=== PATIENT | female | born 1985 | race Caucasian/White ===

== ENCOUNTER 2018-09-08 14:44 | Emergency (ER) | payer MEDICAID, OTHER ==
[~2018-09-08] VITALS: Ht 182.9 cm; Wt 72.2 kg
[2018-09-08 14:48] VITALS: BP 125/85
[2018-09-08] MEDS ORDERED: LIDOCAINE 1%, 10ML INFIL ONE (15:00)
[2018-09-08] MEDS ORDERED: LIDOCAINE-MPF 1%, 2ML ONE (15:19)
[2018-09-08] MEDS ORDERED: BACITRACIN ZINC OINT 500U/GM, 0.9 GM ONE (16:22)
== END 2018-09-08 16:56 | disposition home or self-care (01) ==
LOC: ED 16:30
DX: L03.012 Cellulitis of left finger (principal); F17.200 Nicotine dependence, unspecified, uncomplicated
CPT/HCPCS: 10060; 99283

== ENCOUNTER 2018-09-09 19:51 | Emergency (ER) | payer SELFPAY ==
[~2018-09-09] VITALS: Ht 182.9 cm; Wt 72.4 kg
[2018-09-09 19:54] VITALS: BP 122/83
--- NOTE | 2018-09-09 20:20 | NUR ---
krupa perrin at bs for pt assessment. pt has call light within reach.
--- NOTE | 2018-09-09 21:06 | NUR ---
PT D/C WITH D/C SUMMARY AND SCRIPTS. ALL QUESTIONS ANSWERED. PT DENIES ANY OTHER NEEDS PERTAINING TO THIS VISIT. PT AMBULATED TO REGISTRATION DESK WITH STEADY GAIT FOR D/C HOME.
== END 2018-09-09 21:09 | disposition home or self-care (01) ==
LOC: ED 21:03
DX: L03.012 Cellulitis of left finger (principal)
CPT/HCPCS: 99281

== ENCOUNTER 2018-09-27 16:37 | Emergency (ER) | payer OTHER ==
[~2018-09-27] VITALS: Ht 182.9 cm; Wt 80.0 kg
--- NOTE | 2018-09-27 16:41 | NUR ---
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
[2018-09-27 16:51] VITALS: BP 106/66
[2018-09-27 17:15] LABS: BASOPHILS # (AUTO) 0.13 x10^3/uL (0-0.1); BASOPHILS % (AUTO) 2 % (0-1); EOSINOPHILS # (AUTO) 0.19 x10^3/uL (0-0.4); EOSINOPHILS % (AUTO) 3 % (1-7); LYMPHOCYTES # (AUTO) 1.73 x10^3/uL (1-3.4); LYMPHOCYTES % (AUTO) 22 % (22-44); MD NO; MEAN CORPUSCULAR HEMOGLOBIN 31.5 pg (27.0-34.8); MEAN CORPUSCULAR HGB CONC 33.7 g/dL (32.4-35.8); MEAN CORPUSCULAR VOLUME 93.5 fL (80-100); MEAN PLATELET VOLUME 8.1 fL (7.4-10.4); MONOCYTES # (AUTO) 0.71 x10^3/uL (0.2-0.8); MONOCYTES % (AUTO) 9 % (2-9); NEUTROPHILS # (AUTO) 4.98 x10^3/uL (1.8-6.8); NEUTROPHILS % (AUTO) 64 % (42-75); PLATELET COUNT 260 x10^3/uL (130-400); RED BLOOD COUNT 4.21 x10^6/uL (3.82-5.3); RED CELL DISTRIBUTION WIDTH 13.3 % (9.6-15.2)
[2018-09-27 17:24] LABS: ALBUMIN 3.5 g/dL (3.4-5.0); ANION GAP 8 mmol/L (5-15); CALCIUM 8.3 mg/dL (8.5-10.1); CHLORIDE 111 mmol/L (98-107); CREATININE 0.59 mg/dL (0.55-1.02)
--- NOTE | 2018-09-27 17:27 | NUR ---
[employer] IS AT BEDSIDE. VSS. TOLD PT UA SAMPLE IS NEEDED.
[2018-09-27] MEDS ORDERED: IBUPROFEN 200 MG TABLET PO ONE (18:30)
[2018-09-27] MEDS ORDERED: IBUPROFEN 200 MG TABLET ONE (18:41)
--- NOTE | 2018-09-27 18:49 | NUR ---
Patient/Caregiver given discharge instructions and they have confirmed that they understand the instructions. Patient ambulatory with steady gait.
--- NOTE | 2018-09-27 18:49 | NUR ---
THIS RN CALLED [employer] DISPATCH TO LET OFFICER KNOW THAT PT WAS READY FOR D/C AND WANTING TO LEAVE. DISPATCH STATED THAT THEY WOULD CALL OUT TO OFFICER DOSER
== END 2018-09-27 18:50 | disposition home or self-care (01) ==
LOC: ED 16:52
DX: S29.9XXA Unspecified injury of thorax, initial encounter (principal); F17.210 Nicotine dependence, cigarettes, uncomplicated; Y04.8XXA Assault by other bodily force, initial encounter; Y93.89 Activity, other specified; Y92.89 Other specified places as the place of occurrence of the external cause; Y99.8 Other external cause status
CPT/HCPCS: 36415; 70450; 72072; 72110; 80048; 80307; 82040; 84703; 85025; 99284

== ENCOUNTER 2018-11-12 15:57 | Emergency (ER) | payer MEDICARE, MEDICAID ==
--- NOTE | 2018-11-12 16:10 | NUR ---
PT STATING THAT SHE HAS AN APPOINTMENT AT [facility] AND WOULD LIKE TO GO TO [facility] NOW AND POSSIBLY WILL COME BACK LATER OR GET SEEN AT [facility]
== END 2018-11-12 16:25 | disposition left against medical advice (07) ==
LOC: ED 16:19
DX: S00.81XA Abrasion of other part of head, initial encounter (principal); M25.531 Pain in right wrist; V29.9XXA Motorcycle rider (driver) (passenger) injured in unspecified traffic accident, initial encounter; Y93.89 Activity, other specified; Y92.89 Other specified places as the place of occurrence of the external cause; Y99.8 Other external cause status
CPT/HCPCS: 99281